=== PATIENT | female | born 1995 ===

== ENCOUNTER 2018-09-24 12:10 | Outpatient (CLI) | payer OTHER | END 2018-09-24 12:23 | disposition home or self-care (01) | LOC: SONOGRAMA 12:10 | DX: Z34.80 Encounter for supervision of other normal pregnancy, unspecified trimester (principal) ==

== ENCOUNTER 2019-01-27 11:37 | Inpatient (IN) | payer OTHER ==
[~2019-01-27] VITALS: Ht 162.6 cm; Wt 72.6 kg
[2019-02-21] MEDS ORDERED: PRENATAL TABLE1 EAC1 PO (02:19)
== END 2019-02-23 12:39 | disposition home or self-care (01) | DRG 807 ==
LOC: OB/GYN 02-03 14:00 → LDR 02-21 01:36 → OB/GYN 02-21 01:36
PROVIDERS: ADMIT Specialist
PROC: 10E0XZZ Delivery of Products of Conception, External Approach (ICD-10-PCS; principal; 2019-02-21)
PROC: 3E033VJ Introduction of Other Hormone into Peripheral Vein, Percutaneous Approach (ICD-10-PCS; 2019-02-21)
PROC: 4A1HXCZ Monitoring of Products of Conception, Cardiac Rate, External Approach (ICD-10-PCS; 2019-02-21)
DX: O80 Encounter for full-term uncomplicated delivery (principal); Z37.0 Single live birth; Z3A.38 38 weeks gestation of pregnancy

== ENCOUNTER 2020-12-30 13:15 | Inpatient (IN) | payer OTHER ==
[~2020-12-30] VITALS: Ht 162.6 cm; Wt 77.1 kg
[~2020-12-30 13:15] MED LIST: PRENATAL TABLE1 EAC1 PO
== END 2021-01-16 11:07 | disposition home or self-care (01) | DRG 807 ==
LOC: SURH 01-07 13:15 → LDR 01-14 03:46 → OB/GYN 01-14 03:46
PROVIDERS: ADMIT Specialist; ATTEND Specialist
PROC: 10E0XZZ Delivery of Products of Conception, External Approach (ICD-10-PCS; principal; 2021-01-14)
PROC: 3E033VJ Introduction of Other Hormone into Peripheral Vein, Percutaneous Approach (ICD-10-PCS; 2021-01-14)
PROC: 10907ZC Drainage of Amniotic Fluid, Therapeutic from Products of Conception, Via Natural or Artificial Opening (ICD-10-PCS; 2021-01-14)
PROC: 4A1HXFZ Monitoring of Products of Conception, Cardiac Rhythm, External Approach (ICD-10-PCS; 2021-01-14)
DX: O99.824 Streptococcus B carrier state complicating childbirth (principal); Z37.0 Single live birth; Z3A.38 38 weeks gestation of pregnancy; Z20.822 Contact with and (suspected) exposure to COVID-19